=== PATIENT | female | born 1960 | race Two or more races ===

== ENCOUNTER 2019-12-29 10:26 | Inpatient (IN) | payer BC, MEDICAID ==
[~2019-12-29] VITALS: Ht 165.1 cm; Wt 94.7 kg
[2019-12-29] MEDS ORDERED: PANTOPRAZOLE 40 MG/10 ML VIAL INJ IV STA (10:43)
[2019-12-29] MEDS ORDERED: SODIUM CHLORIDE 0.9% 1,000 ML IVB ONE (10:43)
[2019-12-29] MEDS ORDERED: MORPHINE SULFATE 4 MG/ML SYR/VIAL IV ONE (10:45)
[2019-12-29] MEDS ORDERED: ONDANSETRON HCL 4 MG/2 ML VIAL IV ONE (10:45)
[2019-12-29] MEDS ORDERED: IOHEXOL 300 MG/ML 100ML BOTTLE IJ ONE (10:49)
[2019-12-29 11:09] LABS: Basophils # (auto) 0.1 uL; Basophils % (auto) 0.6 % (0.0-2.0); Eosinophils # (auto) 0.1 uL; Eosinophils % (auto) 1.5 % (0.0-7.0); Hemoglobin 14.3 g/dL (12.2-16.2); Lymphocytes # (auto) 1.7 uL; Lymphocytes % (auto) 18.3 % (10.0-50.0); Mean Corpuscular Hemoglobin 29.7 pg (28.0-32.0); Mean Corpuscular Volume 87.2 fL (80.0-100.0); Monocytes # (auto) 0.5 uL; Monocytes % (auto) 4.9 % (0.0-12.0); Neutrophils # (auto) 7.1 uL; Neutrophils % (auto) 74.7 % (37.0-80.0); Platelet Count (auto) 206 10^3/uL (140-450); Red Blood Cells 4.82 10^6/uL (4.0-5.20); Red Cell Distribution Width 14.9 % (11.8-14.3); White Blood Cell 9.4 10^3/uL (4.4-10.8)
[2019-12-29 11:27] LABS: Albumin 4.1 g/dL (3.4-5.0); Anion Gap 6 (5-15); Blood Urea Nitrogen 15 mg/dL (7-18); Calcium 9.3 mg/dL (8.5-10.1); Carbon Dioxide 27 mmol/L (21-32); Chloride 104 mmol/L (98-107); Glucose 142 mg/dL (74-106); Potassium 3.6 mmol/L (3.5-5.1); Sodium 137 mmol/L (136-145)
[2019-12-29 11:36] LABS: Alanine Aminotransferase 30 U/L (13-56); Alkaline Phosphatase 106 U/L (45-117); Aspartate Aminotransferase 22 U/L (15-37); BUN/Creatinine Ratio 22.1; Bilirubin, Total 0.7 mg/dL (0.2-1.0); GFR African American 114 mL/min; GFR Non-African American 94 mL/min; Lipase 21153 U/L (73-393); Total Protein 8.4 g/dL (6.4-8.2)
[2019-12-29 11:36] LABS: Urine Bacteria NONE SEEN /hpf (None Seen); Urine Blood Negative /uL (Negative); Urine Mucus FEW (None Seen); Urine Specific Gravity 1.024 (1.001-1.035); Urine WBC 1 /hpf (0 - 5)
[2019-12-29] MEDS ORDERED: HYDROmorphone HCL 2 MG/ML VL IV ONE (12:30)
[2019-12-29] MEDS ORDERED: amLODIPine BESYLATE 5 MG TAB PO ONE (13:15)
[2019-12-29] MEDS ORDERED: NITROGLYCERIN 0.4 MG SL TAB SL PRN (13:15)
[2019-12-29] MEDS ORDERED: ONDANSETRON HCL 4 MG/2 ML VIAL IV PRN (13:15)
[2019-12-29] MEDS ORDERED: MORPHINE SULF INJ 2 MG/ML SYRINGE 1ML IV PRN (13:15)
[2019-12-29] MEDS ORDERED: hydrALAZINE HCL 20 MG/ML VL IV PRN (13:15)
[2019-12-29] MEDS: SODIUM CHLORIDE 0.9% 1,000 ML IV SCH ×2 (14:11→22:20)
--- NOTE | 2019-12-29 15:30 | NUR ---
MS admit from ER JOSE,SHONDA admitted to tele/MS after SBAR received. Patient oriented to Althea villalobos RN, unit, room, bed, and unit policies regarding patient care and visiting hours. Patient weighed by bedscale and encouraged to call if they need something. All questions and concerns addressed, patient verbalized understanding.
[2019-12-29 15:53] VITALS: BP 150/82
[2019-12-29] MEDS ORDERED: TRAM50TA2 PO (16:59)
[2019-12-29 17:00] VITALS: BP 132/86
[2019-12-29] MEDS: HYDROmorphone HCL 2 MG/ML VL IV PRN ×2 (18:41→22:21)
[2019-12-29 20:15] VITALS: BP 132/79
--- NOTE | 2019-12-29 20:15 | NUR ---
Opening Shift Note Assumed care of patient, awake and alert. No S/S of distress/SOB. Patient is on room air. Respirations even and unlabored. Instructed on POC and to call for assist PRN, will continue to monitor for changes Q1hr and PRN.
[2019-12-29 22:00] VITALS: BP 132/79
[2019-12-29] MEDS: FAMOTIDINE (10MG/ML) 2ML VL IV SCH (22:19)
[2019-12-30 05:00] VITALS: BP 132/79
[2019-12-30] MEDS: SODIUM CHLORIDE 0.9% 1,000 ML IV SCH ×3 (05:21→21:18)
[2019-12-30 06:49] LABS: Basophils # (auto) 0 uL; Basophils % (auto) 0.4 % (0.0-2.0); Eosinophils # (auto) 0.1 uL; Eosinophils % (auto) 1.4 % (0.0-7.0); Hematocrit 37.3 % (36.0-46.0); Hemoglobin 12.4 g/dL (12.2-16.2); Lymphocytes # (auto) 1.5 uL; Lymphocytes % (auto) 21.8 % (10.0-50.0); Mean Corpuscular Hemoglobin 29.5 pg (28.0-32.0); Mean Corpuscular Hgb Conc. 33.3 g/dL (32.0-36.0); Mean Corpuscular Volume 88.5 fL (80.0-100.0); Monocytes # (auto) 0.3 uL; Monocytes % (auto) 4.9 % (0.0-12.0); Neutrophils % (auto) 71.5 % (37.0-80.0); Nucleated Red Blood Cells % 0.1 %; Platelet Count (auto) 178 10^3/uL (140-450); Red Blood Cells 4.21 10^6/uL (4.0-5.20); Red Cell Distribution Width 14.9 % (11.8-14.3)
--- NOTE | 2019-12-30 07:00 | NUR ---
CLOSING NOTE PATIENT HAS NO S/S OF DISTRESS/SOB. PATIENT IS ON ROOM AIR. RESPIRATIONS EVEN AND UNLABORED. DAY SHIFT RN MADE AWARE OF PATIENT REQUEST TO NOTIFY DOCTOR ABOUT FEELING LIKE SHE HAS TO SIT ON THE TOILET AND PUSH MULTIPLE TIMES TO GET HER URINE OUT THIS PAST WEEK. PATIENT DENIES BURNING AND PAIN UPON URINATION. PATIENT STATES SHE IS URINATING THE SAME AMOUNT SHE USUALLY DOES. PATIENT DENIES PELVIC PAIN.
[2019-12-30 07:09] LABS: Potassium 3.8 mmol/L (3.5-5.1)
[2019-12-30 07:24] LABS: Albumin 3.4 g/dL (3.4-5.0); BUN/Creatinine Ratio 11.9; Bilirubin, Total 0.8 mg/dL (0.2-1.0); Calcium 8.8 mg/dL (8.5-10.1); Total Protein 6.9 g/dL (6.4-8.2)
--- NOTE | 2019-12-30 08:00 | NUR ---
OPENING SHIFT NOTE ASSUMED CARE OF PATIENT AWAKE AND ALERT. NO S/S OF DISTRESS NOTED. PT UPDATED ON POC FOR THE DAY. BED IS IN LOWEST, LOCKED POSITION WITH SIDE RAILS UP X2 AND CALL LIGHT WITHIN REACH. WILL CONTINUE TO MONITOR Q1H AND PRN.
[2019-12-30 09:00] VITALS: BP 148/73
[2019-12-30] MEDS: FAMOTIDINE (10MG/ML) 2ML VL IV SCH ×2 (10:10→21:18)
[2019-12-30] MEDS: amLODIPine BESYLATE 5 MG TAB PO SCH (10:11)
[2019-12-30] MEDS: HYDROcodone-ACET 5/325MG TAB PO PRN ×2 (11:16→17:13)
[2019-12-30 12:56] VITALS: BP 167/99
[2019-12-30 15:03] VITALS: BP 145/82
[2019-12-30 17:00] VITALS: BP 137/66
--- NOTE | 2019-12-30 20:05 | NUR ---
open note assumed care of pt. upon entering room pt awkae, alert and oriented x4. pt on room air, no distress noted or expressed. pt updated on plan of care, no additional questions at this time. pt bed locked, low and 2x rails up. this nurse encouraged pt to call as needed. call light in reach, will round q1hr and prn.
[2019-12-30 21:00] VITALS: BP 152/82
[2019-12-30] MEDS: HYDROmorphone HCL 2 MG/ML VL IV PRN (21:19)
[2019-12-31 05:00] VITALS: BP 135/85
[2019-12-31] MEDS: SODIUM CHLORIDE 0.9% 1,000 ML IV SCH ×3 (05:43→21:01)
[2019-12-31 06:29] LABS: Potassium 3.1 mmol/L (3.5-5.1)
[2019-12-31 06:37] LABS: Albumin 3.3 g/dL (3.4-5.0); Bilirubin, Total 0.7 mg/dL (0.2-1.0); Calcium 8.6 mg/dL (8.5-10.1)
[2019-12-31 09:00] VITALS: BP 157/98
[2019-12-31] MEDS: FAMOTIDINE (10MG/ML) 2ML VL IV SCH (09:42)
[2019-12-31] MEDS: amLODIPine BESYLATE 5 MG TAB PO SCH (09:42)
--- NOTE | 2019-12-31 10:07 | NUR ---
AT BEDSIDE DR VALLES AT BEDSIDE UPDATING PT ON POC.
[2019-12-31] MEDS ORDERED: traMADol HCL 50 MG TAB PO PRN (10:15)
[2019-12-31] MEDS ORDERED: POTASSIUM CHL 20 Meq TABLET PO ONE (10:15)
[2019-12-31 11:13] LABS: Urine Bacteria FEW /hpf (None Seen); Urine Blood Negative /uL (Negative); Urine Mucus FEW (None Seen); Urine WBC 1 /hpf (0 - 5)
[2019-12-31 13:00] VITALS: BP 151/97
[2019-12-31 17:00] VITALS: BP 117/73
[2019-12-31 22:00] VITALS: BP 142/87
[2019-12-31] MEDS: FAMOTIDINE 20 MG TAB PO SCH (22:26)
[2020-01-01 05:14] VITALS: BP 135/77
[2020-01-01] MEDS: SODIUM CHLORIDE 0.9% 1,000 ML IV SCH (06:05)
[2020-01-01 06:41] LABS: BUN/Creatinine Ratio 8.9; Calcium 8.8 mg/dL (8.5-10.1); Potassium 3.9 mmol/L (3.5-5.1)
[2020-01-01] MEDS: FAMOTIDINE 20 MG TAB PO SCH (09:49)
[2020-01-01] MEDS: amLODIPine BESYLATE 5 MG TAB PO SCH (09:49)
[2020-01-01 11:13] VITALS: BP 142/78
== END 2020-01-01 11:25 | disposition home or self-care (01) | DRG 440 ==
LOC: ER 10:26 → OVERFLOW 10:27 → CENTRAL 15:20
PROVIDERS: ADMIT Nurse Practitioner Acute Care; ATTEND Internal Medicine
DX: K85.90 Acute pancreatitis without necrosis or infection, unspecified (principal); E78.5 Hyperlipidemia, unspecified; I10 Essential (primary) hypertension; K76.0 Fatty (change of) liver, not elsewhere classified; Z83.3 Family history of diabetes mellitus; Z90.49 Acquired absence of other specified parts of digestive tract; E66.9 Obesity, unspecified; Z68.34 Body mass index [BMI] 34.0-34.9, adult
CPT/HCPCS: 36415; 74177; 76705; 80048; 80053; 80061; 81001; 82150; 83690; 84443; 84484; 85025; 93005; 96361; 96374; 96375; C9113; G0378; J2405; J3490